=== PATIENT | female | born 1935 | race Caucasian/White ===

== ENCOUNTER 2018-01-03 13:39 | Emergency (ER) | payer OTHER ==
[~2018-01-03] VITALS: Ht 160 cm; Wt 90.7 kg
[2018-01-03 15:04] LABS: Basophils # (auto) 0 uL; Basophils % (auto) 0.4 % (0.0-2.0); Eosinophils # (auto) 0.1 uL; Eosinophils % (auto) 1.6 % (0.0-7.0); Hematocrit 36.6 % (36.0-46.0); Hemoglobin 12.1 g/dL (12.2-16.2); Lymphocytes # (auto) 1.3 uL; Mean Corpuscular Hemoglobin 29.7 pg (28.0-32.0); Mean Corpuscular Hgb Conc. 33.1 g/dL (32.0-36.0); Mean Corpuscular Volume 89.9 fL (80.0-100.0); Monocytes # (auto) 0.4 uL; Monocytes % (auto) 6.7 % (0.0-12.0); Neutrophils % (auto) 68.3 % (37.0-80.0); Nucleated Red Blood Cells % 0.1 %; Platelet Count (auto) 160 10^3/uL (140-450); Red Blood Cells 4.07 10^6/uL (4.0-5.20); Red Cell Distribution Width 15.8 % (11.8-14.3); White Blood Cell 5.8 10^3/uL (4.4-10.8)
[2018-01-03 15:23] LABS: Alanine Aminotransferase 17 U/L (13-56); Albumin 3.2 g/dL (3.4-5.0); Alkaline Phosphatase 78 U/L (45-117); Anion Gap 9 (5-15); Aspartate Aminotransferase 13 U/L (15-37); BUN/Creatinine Ratio 20.9; Bilirubin, Total 0.3 mg/dL (0.2-1.0); Blood Urea Nitrogen 29 mg/dL (7-18); Calcium 8.9 mg/dL (8.5-10.1); Carbon Dioxide 20 mmol/L (21-32); Chloride 110 mmol/L (98-107); GFR African American 47 mL/min; GFR Non-African American 39 mL/min; Glucose 146 mg/dL (74-106); Potassium 4.5 mmol/L (3.5-5.1); Sodium 139 mmol/L (136-145)
[2018-01-03] MEDS ORDERED: SODIUM CHLORIDE 0.9% 1,000 ML IV ONE (18:00)
[2018-01-03 19:23] VITALS: BP 111/66
[2018-01-03 19:36] LABS: Urine Bacteria MANY /hpf (None Seen); Urine Blood Negative /uL (Negative); Urine Specific Gravity 1.013 (1.001-1.035); Urine WBC 63 /hpf (0 - 5)
== END 2018-01-03 19:51 | disposition short-term general hospital (02) ==
LOC: ER 13:51
DX: R00.1 Bradycardia, unspecified (principal); R42 Dizziness and giddiness; R51 Headache; Z91.041 Radiographic dye allergy status
CPT/HCPCS: 36415; 71045; 80053; 81001; 82962; 84443; 84484; 85025; 93005; 96360

== ENCOUNTER 2018-03-31 12:39 | Observation (INO) | payer OTHER ==
[~2018-03-31] VITALS: Ht 165.1 cm; Wt 77.1 kg
[2018-03-31] MEDS ORDERED: SODIUM CHLORIDE 0.9% 1,000 ML IVB ONE (13:24)
[2018-03-31 13:51] LABS: Basophils # (auto) 0 uL; Basophils % (auto) 0.3 % (0.0-2.0); Eosinophils # (auto) 0.1 uL; Eosinophils % (auto) 1.8 % (0.0-7.0); Hematocrit 35.3 % (36.0-46.0); Hemoglobin 11.9 g/dL (12.2-16.2); Lymphocytes # (auto) 1.7 uL; Lymphocytes % (auto) 29.1 % (10.0-50.0); Mean Corpuscular Hemoglobin 31.8 pg (28.0-32.0); Mean Corpuscular Hgb Conc. 33.7 g/dL (32.0-36.0); Mean Corpuscular Volume 94.3 fL (80.0-100.0); Monocytes # (auto) 0.4 uL; Monocytes % (auto) 7.7 % (0.0-12.0); Neutrophils # (auto) 3.5 uL; Neutrophils % (auto) 61.1 % (37.0-80.0); Nucleated Red Blood Cells % 0.1 %; Platelet Count (auto) 159 10^3/uL (140-450); Red Blood Cells 3.74 10^6/uL (4.0-5.20); Red Cell Distribution Width 14.8 % (11.8-14.3); White Blood Cell 5.7 10^3/uL (4.4-10.8)
[2018-03-31 14:04] LABS: INR 1.03 (0.9-1.15); Partial Thromboplastin Time 28.9 sec (23.78-33.04)
[2018-03-31 14:17] LABS: Alanine Aminotransferase 16 U/L (13-56); Albumin 3.2 g/dL (3.4-5.0); Alkaline Phosphatase 69 U/L (45-117); Anion Gap 4 (5-15); Aspartate Aminotransferase 12 U/L (15-37); BUN/Creatinine Ratio 21.4; Bilirubin, Total 0.3 mg/dL (0.2-1.0); Blood Urea Nitrogen 21 mg/dL (7-18); Calcium 9.1 mg/dL (8.5-10.1); Carbon Dioxide 26 mmol/L (21-32); Chloride 110 mmol/L (98-107); GFR African American 70 mL/min; GFR Non-African American 58 mL/min; Glucose 95 mg/dL (74-106); Magnesium 2.4 mg/dL (1.6-2.6); Potassium 4.4 mmol/L (3.5-5.1); Sodium 140 mmol/L (136-145)
[2018-03-31] MEDS ORDERED: PROMETHAZINE HCL 25 MG/ML 1ML IV ONE (14:30)
[2018-03-31 17:10] LABS: Urine Bacteria FEW /hpf (None Seen); Urine Blood Negative /uL (Negative); Urine Specific Gravity 1.005 (1.001-1.035); Urine WBC 1 /hpf (0 - 5)
[2018-03-31 19:58] VITALS: BP 156/74
== END 2018-03-31 20:16 | disposition home or self-care (01) | DRG 312 ==
LOC: EDBD 12:39 → EDUNIT# 12:39 → ER 12:39 → OVERFLOW 12:40 → ER 20:16
PROVIDERS: ADMIT Family Medicine; ATTEND Family Medicine
DX: R55 Syncope and collapse (principal); D64.9 Anemia, unspecified; E87.8 Other disorders of electrolyte and fluid balance, not elsewhere classified; I10 Essential (primary) hypertension; E78.5 Hyperlipidemia, unspecified; F03.90 Unspecified dementia, unspecified severity, without behavioral disturbance, psychotic disturbance, mood disturbance, and anxiety
CPT/HCPCS: 36415; 70450; 71045; 80053; 81001; 82962; 83735; 84484; 85025; 85610; 85730; 96361; 96374; 99291; G0378; J2550; J7030

== ENCOUNTER 2020-11-27 17:15 | Emergency (ER) | payer OTHER ==
[~2020-11-27] VITALS: Ht 162.6 cm; Wt 90.7 kg
[2020-11-27 18:58] LABS: Basophils # (auto) 0 10 ^3/uL (0-0.2); Basophils % (auto) 0.3 % (0.0-2.0); Eosinophils # (auto) 0.1 10 ^3/uL (0-0.8); Eosinophils % (auto) 1.6 % (0.0-7.0); Hematocrit 38.6 % (36.0-46.0); Lymphocytes # (auto) 1.4 10 ^3/uL (0.4-5.4); Lymphocytes % (auto) 20.3 % (10.0-50.0); Mean Corpuscular Hemoglobin 32.4 pg (28.0-32.0); Mean Corpuscular Hgb Conc. 33.8 g/dL (32.0-36.0); Mean Corpuscular Volume 95.9 fL (80.0-100.0); Monocytes # (auto) 0.5 10 ^3/uL (0-1.3); Monocytes % (auto) 7.1 % (0.0-12.0); Neutrophils # (auto) 4.7 10 ^3/uL (1.6-8.6); Neutrophils % (auto) 70.7 % (37.0-80.0); Red Blood Cells 4.02 10^6/uL (4.0-5.20); Red Cell Distribution Width 14.2 % (11.8-14.3); White Blood Cell 6.7 10^3/uL (4.4-10.8)
[2020-11-27 19:16] LABS: INR 1.11 (0.9-1.15); Partial Thromboplastin Time 31.9 sec (23.0-31.2)
[2020-11-27 19:17] LABS: Albumin 3.4 g/dL (3.4-5.0); Calcium 9.1 mg/dL (8.5-10.1); Potassium 4.9 mmol/L (3.5-5.1)
[2020-11-27 19:21] LABS: BUN/Creatinine Ratio 17.1; Bilirubin, Total 0.3 mg/dL (0.2-1.0); Total Protein 6.9 g/dL (6.4-8.2)
[2020-11-27] MEDS ORDERED: ONDANSETRON HCL 4 MG/2 ML VIAL IV ONE ×2 (20:15→22:00)
[2020-11-27] MEDS ORDERED: MORPHINE SULFATE 4 MG/ML SYR/VIAL IV ONE ×2 (20:15→22:00)
[2020-11-27 22:44] LABS: Urine Bacteria FEW /hpf (None Seen); Urine Blood Negative /uL (Negative); Urine Hyaline Cast FEW /lpf (0 - 2); Urine Specific Gravity 1.011 (1.001-1.035); Urine WBC <1 /hpf (0 - 5)
[2020-11-28 02:07] VITALS: BP 155/66
[2020-11-28] MEDS ORDERED: MORPHINE SULFATE 4 MG/ML SYR/VIAL ONE (02:21)
[2020-11-28] MEDS ORDERED: MORPHINE SULFATE 4 MG/ML SYR/VIAL IV ONE (02:30)
== END 2020-11-28 02:32 | disposition hospice, inpatient (51) ==
LOC: EDBD 17:15 → ER 17:19
DX: S72.011A Unspecified intracapsular fracture of right femur, initial encounter for closed fracture (principal); J44.9 Chronic obstructive pulmonary disease, unspecified; E78.5 Hyperlipidemia, unspecified; E11.22 Type 2 diabetes mellitus with diabetic chronic kidney disease; I12.9 Hypertensive chronic kidney disease with stage 1 through stage 4 chronic kidney disease, or unspecified chronic kidney disease; N18.9 Chronic kidney disease, unspecified; Z86.73 Personal history of transient ischemic attack (TIA), and cerebral infarction without residual deficits; Z90.49 Acquired absence of other specified parts of digestive tract; Z90.89 Acquired absence of other organs; Z88.8 Allergy status to other drugs, medicaments and biological substances; Z91.048 Other nonmedicinal substance allergy status; Z20.822 Contact with and (suspected) exposure to COVID-19; W18.39XA Other fall on same level, initial encounter; Y93.89 Activity, other specified; Y92.89 Other specified places as the place of occurrence of the external cause; Y99.8 Other external cause status
CPT/HCPCS: 36415; 71045; 73502; 80053; 81001; 85025; 85610; 85730; 87426; 93005; 96374; 96375; 96376; 99285; J2270; J2405

== ENCOUNTER 2022-10-01 02:24 | Inpatient (IN) | payer OTHER ==
[~2022-10-01] VITALS: Ht 165.1 cm; Wt 86.6 kg
[2022-10-01 03:06] LABS: Basophils # (auto) 0 10 ^3/uL (0-0.2); Basophils % (auto) 0.8 % (0.0-2.0); Eosinophils # (auto) 0.3 10 ^3/uL (0-0.8); Eosinophils % (auto) 5.2 % (0.0-7.0); Hematocrit 41.4 % (36.0-46.0); Hemoglobin 13.8 g/dL (12.2-16.2); Lymphocytes # (auto) 2.9 10 ^3/uL (0.4-5.4); Lymphocytes % (auto) 47.7 % (10.0-50.0); Mean Corpuscular Hemoglobin 31.4 pg (28.0-32.0); Mean Corpuscular Hgb Conc. 33.3 g/dL (32.0-36.0); Mean Corpuscular Volume 94.2 fL (80.0-100.0); Monocytes # (auto) 0.4 10 ^3/uL (0-1.3); Monocytes % (auto) 6.1 % (0.0-12.0); Neutrophils # (auto) 2.5 10 ^3/uL (1.6-8.6); Neutrophils % (auto) 40.2 % (37.0-80.0); Nucleated Red Blood Cells % 0.1 %; Red Cell Distribution Width 15.8 % (11.8-14.3); White Blood Cell 6.2 10^3/uL (4.4-10.8)
[2022-10-01 03:22] LABS: INR 1.1 (0.9-1.15); Partial Thromboplastin Time 28.1 sec (24.6-33.4)
[2022-10-01 03:44] LABS: BUN/Creatinine Ratio 17.2 (10.0-20.0); Calcium 10.2 mg/dL (8.5-10.1); Potassium 4.5 mmol/L (3.5-5.1)
[2022-10-01 03:45] LABS: Albumin 3.6 g/dL (3.4-5.0); Bilirubin, Total 0.6 mg/dL (0.2-1.0); Total Protein 7.7 g/dL (6.4-8.2)
[2022-10-01] MEDS ORDERED: MORPHINE SULFATE 4 MG/ML SYR/VIAL IV ONE (03:45)
[2022-10-01] MEDS ORDERED: LORazepam 2MG/ML-1ML VIAL IV ONE (05:00)
[2022-10-01] MEDS ORDERED: MORPHINE SULFATE INJ 2 MG/ml SYRG IV PRN ×2 (05:30)
[2022-10-01] MEDS ORDERED: LORazepam 2MG/ML-1ML VIAL IV PRN ×2 (05:30→22:00)
[2022-10-01] MEDS ORDERED: DEXTROSE (50%) 50ML SYRG IV PRN (05:30)
[2022-10-01] MEDS ORDERED: DOCUSATE SOD 100 MG CAP PO PRN (05:30)
[2022-10-01] MEDS ORDERED: ACETAMINOPHEN 325 MG TAB PO PRN (05:30)
[2022-10-01] MEDS ORDERED: NITROGLYCERIN 0.4 MG SL TAB SL PRN (05:30)
[2022-10-01 06:05] LABS: Basophils # (auto) 0 10 ^3/uL (0-0.2); Basophils % (auto) 0.5 % (0.0-2.0); Eosinophils # (auto) 0.2 10 ^3/uL (0-0.8); Eosinophils % (auto) 2.8 % (0.0-7.0); Hematocrit 42.3 % (36.0-46.0); Hemoglobin 13.9 g/dL (12.2-16.2); Lymphocytes % (auto) 27.4 % (10.0-50.0); Mean Corpuscular Hgb Conc. 32.8 g/dL (32.0-36.0); Mean Corpuscular Volume 94.4 fL (80.0-100.0); Monocytes # (auto) 0.4 10 ^3/uL (0-1.3); Neutrophils # (auto) 4.6 10 ^3/uL (1.6-8.6); Neutrophils % (auto) 63.3 % (37.0-80.0); Nucleated Red Blood Cells % 0.1 %; Red Blood Cells 4.48 10^6/uL (4.0-5.20); Red Cell Distribution Width 16.4 % (11.8-14.3); White Blood Cell 7.3 10^3/uL (4.4-10.8)
[2022-10-01] MEDS: SODIUM CHLOR 0.9% PF (SALINE LOCK) 10ML VIAL/SYR IV SCH ×3 (06:09→22:36)
[2022-10-01 06:17] LABS: Albumin 3.2 g/dL (3.4-5.0); Calcium 9.5 mg/dL (8.5-10.1); Potassium 3.9 mmol/L (3.5-5.1)
[2022-10-01 06:23] LABS: BUN/Creatinine Ratio 18.1 (10.0-20.0); Bilirubin, Total 0.6 mg/dL (0.2-1.0); Total Protein 7.4 g/dL (6.4-8.2)
[2022-10-01] MEDS: InsuLIN REG 1unit/0.01ml Soln (100units/ml) SC SCH ×4 (08:00→21:39)
[2022-10-01] MEDS: ACCU-CHEK COMFORT CURVE STRIP VI SCH ×4 (09:36→21:38)
[2022-10-01] MEDS: ASPirin 81 mg TAB PO SCH (09:50)
[2022-10-01] MEDS: MEMANTINE HCL 5 MG TAB PO SCH (09:50)
[2022-10-01] MEDS ORDERED: FAMOTIDINE (10MG/ML) 2ML VL IV SCH (10:00)
[2022-10-01] MEDS ORDERED: cefTRIAXone 1GM/50ML D5W 50 ML IV ONE (14:00)
[2022-10-01 18:24] LABS: Urine Bacteria FEW /hpf (None Seen); Urine Blood TRACE /uL (Negative); Urine Budding Yeast FEW /hpf (None Seen); Urine Mucus FEW (None Seen); Urine Specific Gravity 1.012 (1.001-1.035); Urine WBC 754 /hpf (0 - 5); Urine WBC Clumps PRESENT /hpf (None Seen)
[2022-10-01] MEDS: PRAMIPEXOLE DIHYDROCHLORIDE MO 0.25 MG TAB PO SCH (22:36)
[2022-10-01] MEDS: ATORVASTATIN 20 MG TAB PO SCH (22:36)
[2022-10-01] MEDS: GABAPENTIN 100 MG CAP PO SCH (22:37)
[2022-10-01] MEDS ORDERED: MONT-8 PO (23:22)
[2022-10-01] MEDS ORDERED: ROPI0.254 PO (23:22)
[2022-10-01] MEDS ORDERED: SIMV-8 PO (23:22)
[2022-10-01] MEDS ORDERED: ISOS1TAB28 PO (23:22)
[2022-10-01] MEDS ORDERED: DABI150C5 PO (23:22)
[2022-10-01] MEDS ORDERED: SERT-160 PO (23:22)
[2022-10-01] MEDS ORDERED: BISO5TAB44 PO (23:22)
[2022-10-01] MEDS ORDERED: GABA400C11 PO (23:22)
[2022-10-01] MEDS ORDERED: MEMA1TAB5 PO (23:22)
[2022-10-01] MEDS ORDERED: LOSA-69 PO (23:22)
[2022-10-01 23:59] LABS: % Iron Saturation 19.5 % (15-50)
[2022-10-02 00:53] VITALS: BP 139/40
[2022-10-02] MEDS: InsuLIN REG 1unit/0.01ml Soln (100units/ml) SC SCH ×4 (04:00→18:07)
[2022-10-02 05:00] VITALS: BP 157/62
[2022-10-02] MEDS: ACCU-CHEK COMFORT CURVE STRIP VI SCH ×5 (05:14→18:07)
[2022-10-02] MEDS: SODIUM CHLOR 0.9% PF (SALINE LOCK) 10ML VIAL/SYR IV SCH ×3 (06:50→20:27)
[2022-10-02 07:27] LABS: Potassium 4.2 mmol/L (3.5-5.1)
[2022-10-02 07:38] LABS: Albumin 3.1 g/dL (3.4-5.0); BUN/Creatinine Ratio 17.2 (10.0-20.0); Bilirubin, Total 0.4 mg/dL (0.2-1.0); Calcium 9.6 mg/dL (8.5-10.1); Total Protein 7.6 g/dL (6.4-8.2)
[2022-10-02 08:37] LABS: Basophils # (auto) 0 10 ^3/uL (0-0.2); Basophils % (auto) 0.5 % (0.0-2.0); Eosinophils # (auto) 0.3 10 ^3/uL (0-0.8); Eosinophils % (auto) 4.1 % (0.0-7.0); Hematocrit 41.3 % (36.0-46.0); Lymphocytes # (auto) 1.7 10 ^3/uL (0.4-5.4); Lymphocytes % (auto) 25.4 % (10.0-50.0); Mean Corpuscular Hemoglobin 30.9 pg (28.0-32.0); Mean Corpuscular Hgb Conc. 33.9 g/dL (32.0-36.0); Mean Corpuscular Volume 91.1 fL (80.0-100.0); Monocytes # (auto) 0.4 10 ^3/uL (0-1.3); Monocytes % (auto) 6.3 % (0.0-12.0); Neutrophils # (auto) 4.4 10 ^3/uL (1.6-8.6); Neutrophils % (auto) 63.7 % (37.0-80.0); Nucleated Red Blood Cells % 0.1 %; Red Blood Cells 4.54 10^6/uL (4.0-5.20); Red Cell Distribution Width 16.1 % (11.8-14.3); White Blood Cell 6.9 10^3/uL (4.4-10.8)
[2022-10-02 09:00] VITALS: BP 127/55
[2022-10-02] MEDS: ASPirin 81 mg TAB PO SCH (09:32)
[2022-10-02] MEDS: MEMANTINE HCL 5 MG TAB PO SCH (09:33)
[2022-10-02] MEDS: GABAPENTIN 100 MG CAP PO SCH ×2 (09:34→20:26)
[2022-10-02] MEDS: cefTRIAXone 1GM/50ML D5W 50 ML IV SCH (11:14)
[2022-10-02] MEDS ORDERED: DEXTROSE (50%) 50ML SYRG IV PRN (12:30)
[2022-10-02 13:17] VITALS: BP 144/70
[2022-10-02 15:36] LABS: Urine Bacteria NONE SEEN /hpf (None Seen); Urine Blood 1+ /uL (Negative); Urine Specific Gravity 1.013 (1.001-1.035); Urine WBC 1625 /hpf (0 - 5); Urine WBC Clumps PRESENT /hpf (None Seen)
[2022-10-02 17:01] VITALS: BP 148/65
[2022-10-02] MEDS: PRAMIPEXOLE DIHYDROCHLORIDE MO 0.25 MG TAB PO SCH (20:26)
[2022-10-02] MEDS: ATORVASTATIN 20 MG TAB PO SCH (20:27)
[2022-10-02] MEDS: MONTELUKAST SODIUM 10 MG TAB PO SCH (20:27)
[2022-10-02 22:00] VITALS: BP 148/58
[2022-10-03] MEDS: InsuLIN REG 1unit/0.01ml Soln (100units/ml) SC SCH ×5 (00:40→23:23)
[2022-10-03 05:00] VITALS: BP 155/41
[2022-10-03] MEDS: ACCU-CHEK COMFORT CURVE STRIP VI SCH ×5 (05:10→23:23)
[2022-10-03] MEDS: SODIUM CHLOR 0.9% PF (SALINE LOCK) 10ML VIAL/SYR IV SCH ×3 (05:10→22:14)
[2022-10-03 06:49] LABS: BUN/Creatinine Ratio 18.7 (10.0-20.0); Calcium 10.1 mg/dL (8.5-10.1)
[2022-10-03] MEDS: HYDROcodone-ACET 5/325MG TAB PO PRN ×2 (08:10→20:28)
[2022-10-03 09:00] VITALS: BP 146/48
[2022-10-03] MEDS: MEMANTINE HCL 5 MG TAB PO SCH (09:51)
[2022-10-03] MEDS: ASPirin 81 mg TAB PO SCH (09:52)
[2022-10-03] MEDS: GABAPENTIN 100 MG CAP PO SCH ×2 (09:52→22:15)
[2022-10-03] MEDS: SERTRALINE HCL 50 MG TAB PO SCH (09:52)
[2022-10-03] MEDS: LOSARTAN POTASSIUM 25 MG TAB PO SCH (09:53)
[2022-10-03] MEDS: cefTRIAXone 1GM/50ML D5W 50 ML IV SCH (12:40)
[2022-10-03 13:00] VITALS: BP 144/54
[2022-10-03] MEDS ORDERED: LIDOCAINE HCL 5 % TOP OINT 35 GM TOP PRN (14:30)
[2022-10-03] MEDS ORDERED: BISACODYL 5 MG EC TAB PO ONE (14:30)
[2022-10-03 17:00] VITALS: BP 122/45
[2022-10-03 22:00] VITALS: BP 126/47
[2022-10-03] MEDS: ATORVASTATIN 20 MG TAB PO SCH (22:15)
[2022-10-03] MEDS: PRAMIPEXOLE DIHYDROCHLORIDE MO 0.25 MG TAB PO SCH (22:15)
[2022-10-03] MEDS: MONTELUKAST SODIUM 10 MG TAB PO SCH (22:15)
[2022-10-03] MEDS ORDERED: TEMAZEPAM 15 MG CAP PO ONE (23:45)
[2022-10-04 05:00] VITALS: BP 108/45
[2022-10-04] MEDS: SODIUM CHLOR 0.9% PF (SALINE LOCK) 10ML VIAL/SYR IV SCH ×3 (05:56→21:18)
[2022-10-04] MEDS: InsuLIN REG 1unit/0.01ml Soln (100units/ml) SC SCH ×4 (06:00→23:36)
[2022-10-04] MEDS: ACCU-CHEK COMFORT CURVE STRIP VI SCH ×4 (06:21→23:34)
[2022-10-04 09:00] VITALS: BP 133/49
[2022-10-04] MEDS: ASPirin 81 mg TAB PO SCH (09:34)
[2022-10-04] MEDS: cefTRIAXone 1GM/50ML D5W 50 ML IV SCH (09:34)
[2022-10-04] MEDS: LOSARTAN POTASSIUM 25 MG TAB PO SCH (09:35)
[2022-10-04] MEDS: SERTRALINE HCL 50 MG TAB PO SCH (09:35)
[2022-10-04] MEDS: MEMANTINE HCL 5 MG TAB PO SCH (09:35)
[2022-10-04] MEDS: GABAPENTIN 100 MG CAP PO SCH ×2 (09:36→21:19)
[2022-10-04] MEDS: ONDANSETRON HCL 4 MG/2 ML VIAL IV PRN ×2 (11:19→21:20)
[2022-10-04 13:00] VITALS: BP 120/66
[2022-10-04 17:00] VITALS: BP 109/70
[2022-10-04 17:20] LABS: Folate (Folic Acid) > 24.00 ng/mL (5.38-24)
[2022-10-04] MEDS: MONTELUKAST SODIUM 10 MG TAB PO SCH (21:19)
[2022-10-04] MEDS: ATORVASTATIN 20 MG TAB PO SCH (21:19)
[2022-10-04] MEDS: PRAMIPEXOLE DIHYDROCHLORIDE MO 0.25 MG TAB PO SCH (21:19)
[2022-10-04 22:00] VITALS: BP 117/45
[2022-10-04] MEDS ORDERED: PRAMIPEXOLE DIHYDROCHLORIDE MO 0.25 MG TAB PO SCH (22:45)
[2022-10-05 05:18] VITALS: BP 123/60
[2022-10-05] MEDS: SODIUM CHLOR 0.9% PF (SALINE LOCK) 10ML VIAL/SYR IV SCH ×2 (05:48→14:00)
[2022-10-05] MEDS: InsuLIN REG 1unit/0.01ml Soln (100units/ml) SC SCH ×2 (05:48→12:34)
[2022-10-05] MEDS: ACCU-CHEK COMFORT CURVE STRIP VI SCH ×2 (05:48→12:34)
[2022-10-05 09:00] VITALS: BP 113/49
[2022-10-05] MEDS: SERTRALINE HCL 50 MG TAB PO SCH (10:58)
[2022-10-05] MEDS: GABAPENTIN 100 MG CAP PO SCH (10:58)
[2022-10-05] MEDS: MEMANTINE HCL 5 MG TAB PO SCH (10:58)
[2022-10-05] MEDS: ASPirin 81 mg TAB PO SCH (10:59)
[2022-10-05] MEDS: LOSARTAN POTASSIUM 25 MG TAB PO SCH (10:59)
[2022-10-05] MEDS: cefTRIAXone 1GM/50ML D5W 50 ML IV SCH (11:02)
[2022-10-05 11:56] VITALS: BP 113/52
== END 2022-10-05 15:57 | disposition home health service (06) | DRG 914 ==
LOC: EDBD 02:24 → ER 02:24 → EDUNIT# 02:24 → TELE 05:30 → TELE-WESTW 21:39
PROVIDERS: ADMIT Nurse Practitioner Family; ATTEND Internal Medicine
DX: S09.90XA Unspecified injury of head, initial encounter (principal); I13.0 Hypertensive heart and chronic kidney disease with heart failure and stage 1 through stage 4 chronic kidney disease, or unspecified chronic kidney disease; I48.20 Chronic atrial fibrillation, unspecified; N39.0 Urinary tract infection, site not specified; E11.22 Type 2 diabetes mellitus with diabetic chronic kidney disease; Z20.822 Contact with and (suspected) exposure to COVID-19; E78.5 Hyperlipidemia, unspecified; F02.80 Dementia in other diseases classified elsewhere, unspecified severity, without behavioral disturbance, psychotic disturbance, mood disturbance, and anxiety; G20 Parkinson's disease; J44.9 Chronic obstructive pulmonary disease, unspecified; N18.9 Chronic kidney disease, unspecified; W01.0XXA Fall on same level from slipping, tripping and stumbling without subsequent striking against object, initial encounter; I50.9 Heart failure, unspecified; G40.409 Other generalized epilepsy and epileptic syndromes, not intractable, without status epilepticus; G25.81 Restless legs syndrome; G47.00 Insomnia, unspecified; E11.42 Type 2 diabetes mellitus with diabetic polyneuropathy; R00.1 Bradycardia, unspecified; Z86.73 Personal history of transient ischemic attack (TIA), and cerebral infarction without residual deficits; Z91.041 Radiographic dye allergy status; Z90.49 Acquired absence of other specified parts of digestive tract; Z83.3 Family history of diabetes mellitus; Z80.9 Family history of malignant neoplasm, unspecified; Z82.49 Family history of ischemic heart disease and other diseases of the circulatory system; Z79.899 Other long term (current) drug therapy; Y93.89 Activity, other specified; Y92.89 Other specified places as the place of occurrence of the external cause; Y99.8 Other external cause status
CPT/HCPCS: 36415; 70450; 70551; 71045; 72125; 73502; 80048; 80053; 81001; 82607; 82728; 82746; 82962; 83036; 83540; 83550; 83880; 84443; 84484; 85025; 85610; 85730; 87086; 87088; 87186; 87426; 93005; 93306; 95819; 96365; 96375; 97110; 97116; 97163; 97530; G0378; J0696; J1815; J2405; J3490